=== PATIENT | female | born 1995 | race Caucasian/White ===

== ENCOUNTER 2018-02-14 19:07 | Emergency (ER) | payer OTHER ==
[2018-02-14 20:07] VITALS: BMI 17.2
[2018-02-14 20:13] VITALS: BP 107/76; RESP 18; TEMP 98.7
[2018-02-14] MEDS ORDERED: Sodium Chloride 0.9% 1,000 ML IV STA (21:06)
[2018-02-14 21:17] LABS: BASO # 0.01 K/mm3 (0.0-2.0); BASO % 0.1 % (0.0-3.0); EOS # 0.1 (0.0-0.7); EOS % 0.8 % (1.5-5.0); GRAN # 5.35 (1.4-6.5); GRAN % 70.8 % (50.0-68.0); HEMOGLOBIN 13.8 g/dL (12.0-16.0); LYMPH # 1.6 (1.2-3.4); MEAN CELL VOLUME 81.8 fl (80.0-105.0); MEAN CORPUSCULAR HEMOGLOBIN 25.9 pg (25.0-35.0); MEAN CORPUSCULAR HGB CONC 31.7 g/dl (31.0-37.0); MONO # 0.6 (0.1-0.6); MONO % 7.3 % (1.0-6.0); RBC 5.33 10^6/uL (3.5-6.1); RED CELL DISTRIBUTION WIDTH 13.4 % (11.5-14.5); WHITE BLOOD COUNT 7.6 10^3/ul (4.5-11.0)
[2018-02-14 21:28] LABS: INR 1.06; PROTHROMBIN TIME 12.1 SECONDS (9.4-12.5)
[2018-02-14 21:39] LABS: ALB/GLOB RATIO 1.5 (1.1-1.8); ALBUMIN 4.9 g/dL (3.0-4.8); ALT/SGPT 28 U/L (7-56); AST/SGOT 28 U/L (14-36); BLOOD UREA NITROGEN 10 mg/dL (7-21); CALCIUM 9.6 mg/dL (8.4-10.5); GFR NON-AFRICAN AMERICAN > 60; LIPASE 90 U/L (23-300)
[2018-02-14 21:55] LABS: URINE BILIRUBIN NEGATIVE (NEGATIVE); URINE BLOOD MODERATE (NEGATIVE); URINE COLOR YELLOW (YELLOW); URINE GLUCOSE (UA) NEGATIVE (NEGATIVE); URINE LEUKOCYTE ESTERASE TRACE Leu/uL (NEGATIVE); URINE PROTEIN NEGATIVE mg/dL (<30 mg/dL); URINE UROBILINOGEN 0.2 E.U./dL (<1 E.U./dL)
[2018-02-14 21:56] LABS: URINE APPEARANCE CLEAR (CLEAR)
--- NOTE | 2018-02-14 21:58 | ED PDOC ---
Arrival/HPI <Joaquin Bryant - Last Filed: 02/14/18 22:48> - General Historian: Patient - History of Present Illness Narrative History of Present Illness (Text): 23 year old female who presents to the ED complaining of constant abdominal pain radiating to back since yesterday. Patient took Zantac and Maalox with no improvement. Patient reports associated nausea and 3 episodes of diarrhea. Patient went to [facility] and was advised to come to the ER for further evaluation, rule out pancreatitis. Otherwise, patient denies any vomiting, urinary symptoms, GI bleed, chest pain, shortness of breath, history of abdominal surgeries, or any other complaints. Patient recently had a termination of 2 weeks ago. Time/Duration: 24 hours Symptom Onset: Gradual Symptom Course: Unchanged Activities at Onset: Light Context: Home <Danielle Lei PA-C - Last Filed: 02/14/18 23:47> - General Chief Complaint: Abdominal Pain Time Seen by Provider: 02/14/18 21:00 Past Medical History - Provider Review Nursing Documentation Reviewed: Yes - Infectious Disease Hx of Infectious Diseases: None - Psychiatric Hx Substance Use: No <Danielle Lei PA-C - Last Filed: 02/14/18 23:47> Family/Social History - Physician Review Nursing Documentation Reviewed: Yes Family/Social History: Unknown Family HX Smoking Status: Never Smoked Hx Alcohol Use: No Hx Substance Use: No <Danielle Lei PA-C - Last Filed: 02/14/18 23:47> Allergies/Home Meds <Joaquin Bryant - Last Filed: 02/14/18 22:48> <Danielle Lei PA-C - Last Filed: 02/14/18 23:47> Allergies/Adverse Reactions: Allergies morphine Allergy (Verified 02/14/18 20:07) ANAPHYLAXIS Review of Systems - Physician Review All systems were reviewed & negative as marked: Yes - Review of Systems Constitutional: absent: Fevers Gastrointestinal: Abdominal Pain, Diarrhea, Nausea Genitourinary Female: absent: Dysuria, Frequency, Hematuria, Urine Output Changes Musculoskeletal: Back Pain. absent: Neck Pain <Danielle Lei PA-C - Last Filed: 02/14/18 23:47> Physical Exam Vital Signs Temp Pulse Resp BP Pulse Ox 02/14/18 19:07 98.7 F 80 18 107/76 100 <Joaquin Bryant - Last Filed: 02/14/18 22:48> Vital Signs Reviewed: Yes Vital Signs Temp Pulse Resp BP Pulse Ox 02/14/18 19:07 98.7 F 80 18 107/76 100 Temperature: Afebrile Blood Pressure: Normal Pulse: Regular Respiratory Rate: Normal Appearance: Positive for: Well-Appearing, Non-Toxic Pain Distress: Mild Mental Status: Positive for: Alert and Oriented X 3 - Systems Exam Head: Present: Atraumatic, Normocephalic Pupils: Present: PERRL Extroacular Muscles: Present: EOMI Conjunctiva: Present: Normal Mouth: Present: Moist Mucous Membranes Neck: Present: Normal Range of Motion Respiratory/Chest: Present: Clear to Auscultation, Good Air Exchange. No: Respiratory Distress, Accessory Muscle Use Cardiovascular: Present: Regular Rate and Rhythm, Normal S1, S2. No: Murmurs Abdomen: Present: Tenderness (Moderate epigastric tenderness), Normal Bowel Sounds. No: Distention, Peritoneal Signs, McBurney's Point Tender Back: Present: Normal Inspection Upper Extremity: Present: Normal Inspection. No: Cyanosis, Edema Lower Extremity: Present: Normal Inspection. No: Edema Neurological: Present: GCS=15, CN II-XII Intact, Speech Normal Skin: Present: Warm, Dry, Normal Color. No: Rashes Psychiatric: Present: Alert, Oriented x 3, Normal Insight, Normal Concentration <Danielle Lei PA-C - Last Filed: 02/14/18 23:47> Medical Decision Making - Lab Interpretations Lab Results: 02/14/18 20:45 02/14/18 20:45 Lab Results 02/14/18 21:38: Urine Color Yellow, Urine Appearance Clear, Urine pH 7.0, Ur Specific Apex 1.020, Urine Protein Negative, Urine Glucose (UA) Negative, Urine Ketones Negative, Urine Blood Moderate H, Urine Nitrate Negative, Urine Bilirubin Negative, Urine Urobilinogen 0.2, Ur Leukocyte Esterase Trace H, Urine RBC 1 - 3, Urine WBC 0 - 2, Ur Epithelial Cells 0 - 2, Urine Bacteria Neg 02/14/18 20:45: Sodium 140, Potassium 3.8, Chloride 102, Carbon Dioxide 28, Anion Gap 14, BUN 10, Creatinine 0.5 L, Est GFR ( Amer) > 60, Est GFR (Non-Af Amer) > 60, Random Glucose 98, Calcium 9.6, Magnesium 2.2, Total Bilirubin 0.6, AST 28, ALT 28, Alkaline Phosphatase 56, Total Protein 8.1, Albumin 4.9 H, Globulin 3.2, Albumin/Globulin Ratio 1.5, Lipase 90 02/14/18 20:45: PT 12.1, INR 1.06, APTT 28.0 02/14/18 20:45: WBC 7.6, RBC 5.33, Hgb 13.8, Hct 43.6, MCV 81.8, MCH 25.9, MCHC 31.7, RDW 13.4, Plt Count 307, MPV 9.0, Gran % 70.8 H, Lymph % (Auto) 21.0 L, Kershaw % (Auto) 7.3 H, Eos % (Auto) 0.8 L, Baso % (Auto) 0.1, Gran # 5.35, Lymph # (Auto) 1.6, Kershaw # (Auto) 0.6, Eos # (Auto) 0.1, Baso # (Auto) 0.01 - RAD Interpretation Radiology Orders: 02/14/18 21:06 ABDOMEN COMPLETE [US] Stat - Medication Orders Current Medication Orders: Discontinued Medications Famotidine (Pepcid) 20 mg IVP STAT STA Stop: 02/14/18 21:07 Last Admin: 02/14/18 21:46 Dose: 20 mg IVP Administration Document 02/14/18 21:46 CNR (Rec: 02/14/18 21:46 CNR [id number]) Charges for Administration # of IVP Administrations 1 Sodium Chloride (Sodium Chloride 0.9%) 1,000 mls @ 1,000 mls/hr IV .Q1H STA Stop: 02/14/18 22:05 Last Admin: 02/14/18 21:44 Dose: 1,000 mls/hr eMAR Start Stop Document 02/14/18 21:44 CNR (Rec: 02/14/18 21:46 CNR [id number]) Intravenous Solution Start Date 02/14/18 Start Time 21:45 End Date 02/14/18 End time 22:45 Total Infusion Time 60 Ketorolac Tromethamine (Toradol) 30 mg IVP STAT STA Stop: 02/14/18 21:07 Last Admin: 02/14/18 21:46 Dose: 30 mg MAR Pain Assessment Document 02/14/18 21:46 CNR (Rec: 02/14/18 21:46 CNR [id number]) Pain Reassessment Is this a pain reassessment? No IVP Administration Document 02/14/18 21:46 CNR (Rec: 02/14/18 21:46 CNR [id number]) Charges for Administration # of IVP Administrations 1 Ondansetron HCl (Zofran Inj) 4 mg IVP STAT STA Stop: 02/14/18 21:07 Last Admin: 02/14/18 21:46 Dose: 4 mg IVP Administration Document 02/14/18 21:46 CNR (Rec: 02/14/18 21:46 CNR [id number]) Charges for Administration # of IVP Administrations 1 <Joaquin Bryant - Last Filed: 02/14/18 22:48> ED Course and Treatment: Impression: 23 year old female complaining of abdominal pain radiating to back with asso ciated nausea and diarrhea since yesterday. Plan: -- US Abdomen -- Labs, lipase -- UA, urine cultures -- IV fluids -- Pepcid -- Zofran -- Toradol -- Reassess and disposition Progress Notes: 02/14/18 23:00 Labs reviewed : wbc 7.2, LFTs wnl, lipase 90, UA +moderate blood with trace leuks. Abdominal ultrasound : Normal study. As read by Ramin King MD 02/14/2018 [id number]. On reevaluation, patient reports improvement of symptoms, denies any abdominal pain, nausea or vomiting. On exam, patient remains awake alert and oriented 3 in no acute distress. Neck is supple, abdomen soft and nontender, repeat neuro exam shows no focal findings. Diagnostic results discussed with the patient in great detail. Diagnosis of dyspepsia and UTI discussed with the patient. Advised to follow up with primary care physician referral provided in 1-2 days without fail. Advised to take medication as prescribed. Return to the emergency room at any time for any new or worsening symptoms. Patient states she fully agrees with and understands discharge instructions. States that she agrees with the plan and disposition. Verbalized and repeated discharge instructions and plan. I have given the patient opportunity to ask any additional questions. - Lab Interpretations Lab Results: 02/14/18 20:45 02/14/18 20:45 Lab Results 02/14/18 20:45: Sodium 140, Potassium 3.8, Chloride 102, Carbon Dioxide 28, Anion Gap 14, BUN 10, Creatinine 0.5 L, Est GFR ( Amer) > 60, Est GFR (Non-Af Amer) > 60, Random Glucose 98, Calcium 9.6, Magnesium 2.2, Total Bilirubin 0.6, AST 28, ALT 28, Alkaline Phosphatase 56, Total Protein 8.1, Albumin 4.9 H, Globulin 3.2, Albumin/Globulin Ratio 1.5, Lipase 90 02/14/18 20:45: PT 12.1, INR 1.06, APTT 28.0 02/14/18 20:45: WBC 7.6, RBC 5.33, Hgb 13.8, Hct 43.6, MCV 81.8, MCH 25.9, MCHC 31.7, RDW 13.4, Plt Count 307, MPV 9.0, Gran % 70.8 H, Lymph % (Auto) 21.0 L, Kershaw % (Auto) 7.3 H, Eos % (Auto) 0.8 L, Baso % (Auto) 0.1, Gran # 5.35, Lymph # (Auto) 1.6, Kershaw # (Auto) 0.6, Eos # (Auto) 0.1, Baso # (Auto) 0.01 - RAD Interpretation Radiology Orders: 02/14/18 21:06 ABDOMEN COMPLETE [US] Stat - Medication Orders Current Medication Orders: Sodium Chloride (Sodium Chloride 0.9%) 1,000 mls @ 1,000 mls/hr IV .Q1H STA Stop: 02/14/18 22:05 Last Admin: 02/14/18 21:44 Dose: 1,000 mls/hr eMAR Start Stop Document 02/14/18 21:44 CNR (Rec: 02/14/18 21:46 CNR [id number]) Intravenous Solution Start Date 02/14/18 Start Time 21:45 End Date 02/14/18 End time 22:45 Total Infusion Time 60 Discontinued Medications Famotidine (Pepcid) 20 mg IVP STAT STA Stop: 02/14/18 21:07 Last Admin: 02/14/18 21:46 Dose: 20 mg IVP Administration Document 02/14/18 21:46 CNR (Rec: 02/14/18 21:46 CNR [id number]) Charges for Administration # of IVP Administrations 1 Ketorolac Tromethamine (Toradol) 30 mg IVP STAT STA Stop: 02/14/18 21:07 Last Admin: 02/14/18 21:46 Dose: 30 mg MAR Pain Assessment Document 02/14/18 21:46 CNR (Rec: 02/14/18 21:46 CNR [id number]) Pain Reassessment Is this a pain reassessment? No IVP Administration Document 02/14/18 21:46 CNR (Rec: 02/14/18 21:46 CNR [id number]) Charges for Administration # of IVP Administrations 1 Ondansetron HCl (Zofran Inj) 4 mg IVP STAT STA Stop: 02/14/18 21:07 Last Admin: 02/14/18 21:46 Dose: 4 mg IVP Administration Document 02/14/18 21:46 CNR (Rec: 02/14/18 21:46 CNR [id number]) Charges for Administration # of IVP Administrations 1 <Danielle Lei PA-C - Last Filed: 02/14/18 23:47> - PA / NEEDLE STRAIGHTENER / Resident Statement JONNIE has reviewed & agrees with the documentation as recorded. JONNIE has examined the patient and agrees with the treatment plan. <Joaquin Bryant - Last Filed: 02/14/18 22:48> - PA / NEEDLE STRAIGHTENER / Resident Statement JONNIE has reviewed & agrees with the documentation as recorded. - Scribe Statement The provider has reviewed the documentation as recorded by the Scribe Tori Helm All medical record entries made by the Khalifibmilton were at my direction and personally dictated by me. I have reviewed the chart and agree that the record accurately reflects my personal performance of the history, physical exam, medical decision making, and the department course for this patient. I have also personally directed, reviewed, and agree with the discharge instructions and disposition. <Danielle Lei PA-C - Last Filed: 02/14/18 23:47> Disposition/Present on Arrival <Joaquin Bryant - Last Filed: 02/14/18 22:48> - Present on Arrival Any Indicators Present on Arrival: No History of DVT/PE: No History of Uncontrolled Diabetes: No Urinary Catheter: No History of Decub. Ulcer: No History Surgical Site Infection Following: None - Disposition Have Diagnosis and Disposition been Completed?: Yes Disposition Time: 23:15 Patient Plan: Discharge <Danielle Lei PA-C - Last Filed: 02/14/18 23:47> - Disposition Diagnosis: Abdominal pain, Dyspepsia, UTI (urinary tract infection) Disposition: HOME/ ROUTINE Patient Problems: Current Active Problems Problem Status Onset Abdominal pain Acute Dyspepsia Acute UTI (urinary tract infection) Acute Condition: STABLE Discharge Instructions (ExitCare): Urinary Tract Infections in Adults, Acute Abdomen (Belly Pain), Adult (DC), Dyspepsia (DC) Additional Instructions: Thank you for letting us take care of you today. You were treated for abdominal pain, dyspepsia, UTI. The emergency medical care you received today was directed at your acute symptoms. If you were prescribed any medication, please fill it and take as directed. It may take several days for your symptoms to resolve. Return to the Emergency Department if your symptoms worsen, do not improve, or if you have any other problems. Please contact your doctor in 2 days for re-evaluation and follow up / or call one of the physicians/clinics you have been referred to that are listed on the Patient Visit Information form that is included in your discharge packet. Bring any paperwork you were given at discharge with you along with any medications you are taking to your follow up visit. Our treatment cannot replace ongoing medical care by a primary care provider (PCP) outside of the emergency department. Thank you for allowing the [facility] to be [facility] of your care today. If you had a urine culture: It will take several days for the results, if any change in treatment is needed we will contact you. Prescriptions: Atropine/Hyoscyamine [] 1 tab PO TID PRN #20 tab PRN Reason: Dyspepsia Esomeprazole Magnesium [Nexium] 40 mg PO DAILY #30 capsule. Nitrofurantoin Macrocrystals [Macrobid] 100 mg PO BID #20 cap Referrals: FAMILY PROVIDER,NO [Primary Care Provider] - Follow up with primary Dale Oliva MD [Staff Provider] - Follow up with primary Forms: [employer] (Polish), WORK NOTE, SCHOOL NOTE
[2018-02-14 22:04] LABS: URINE BACTERIA NEG (NEG); URINE EPITHELIAL CELLS 0 - 2 /hpf (0-5); URINE WBC 0 - 2 /hpf (0-6)
[2018-02-14 23:35] VITALS: PULSE 83; O2SAT 98
--- NOTE | 2018-02-15 08:46 | US ---
Date of service: 02/14/2018 HISTORY: epigastric pain COMPARISON: None. TECHNIQUE: Sonographic evaluation of the abdomen. FINDINGS: LIVER: Measures 14.7 cm. Patent portal vein. Portal venous flow: Hepatopetal. Unremarkable echogenicity of the liver parenchyma. No mass. No intrahepatic bile duct dilatation. GALLBLADDER: Unremarkable. No gallstones. COMMON BILE DUCT: Measures 2.4 mm. No stones. No dilatation. PANCREAS: Unremarkable as visualized. No mass. No ductal dilatation. RIGHT KIDNEY: Measures 3.8 x 11.0cm. Normal echogenicity. No calculus, mass, or hydronephrosis. LEFT KIDNEY: Measures 4.4 x 10.3cm. Normal echogenicity. No calculus, mass, or hydronephrosis. SPLEEN: Normal in size and contour. No mass. AORTA: No aneurysmal dilatation. IVC: Unremarkable. OTHER FINDINGS: None. IMPRESSION: Unremarkable abdominal sonogram. Concordant results (preliminary interpretation) provided by [facility]. Procedure Completed: 22:13 Preliminary Report: Dictated and Authenticated: 22:50. Final Interpretation: 08:40. February 15, 2018
== END 2018-02-14 23:46 | disposition home or self-care (01) ==
LOC: ED 19:07
DX: N39.0 Urinary tract infection, site not specified (principal); R10.13 Epigastric pain
CPT/HCPCS: 76700; 80053; 81001; 83690; 83735; 85025; 85610; 85730; 87086; 96361; 96374; 96375; 99284; J1885; J2405; J7030